=== PATIENT | female | born 2005 | race Two or more races ===

== ENCOUNTER → 2024-12-03 | Outpatient (CLI) | payer BC, MEDICAID, SELFPAY ==
[2024-12-03 16:06] LABS: HIV (1&2) Antibody Rapid Non-Reactive
[2024-12-03 16:39] LABS: Syphilis Nonreactive (Nonreactive)
[2024-12-04 09:40] LABS: Chlamydia trachomatis PCR Negative (Not Detect); Neisseria Gonorrhoeae DNA PCR Negative (Not Detect); Trichomonas Negative (Negative)
== END | disposition home or self-care (01) ==
LOC: COPL 14:42
PROVIDERS: PCP Family Medicine; Referring Provider Family Medicine; Visit Provider Family Medicine
DX: Z11.3 Encounter for screening for infections with a predominantly sexual mode of transmission (principal)
CPT/HCPCS: 36415; 86703; 86780; 87491; 87591; 87661

== ENCOUNTER → 2025-04-07 | Outpatient (CLI) | payer BC, MEDICAID, SELFPAY ==
--- NOTE | 2025-04-07 16:29 | XR_ITS ---
Examination: Breast ultrasound, unilateral, right Date and time of exam: April 07, 2025 1637 hours INDICATIONS: Palpable lump right breast 10:00 position note is beginning one month ago, family history breast cancer Technique: Real-time giron scale ultrasonographic imaging performed right breast including all 4 quadrants as well as nipple retroareolar and axillary region. Findings: No cystic or solid mass IMPRESSION: BI-RADS Category 1: Negative study Recommend repeating the right breast sonography in 3 months if palpable abnormality remains
== END | disposition home or self-care (01) ==
PROVIDERS: PCP Family Medicine; Referring Provider Family Medicine; Visit Provider Family Medicine
DX: N63.11 Unspecified lump in the right breast, upper outer quadrant (principal); Z80.3 Family history of malignant neoplasm of breast
CPT/HCPCS: 76641